=== PATIENT | female | born 1985 | race Two or more races ===

== ENCOUNTER 2019-07-11 20:29 | Emergency (ER) | payer OTHER ==
[~2019-07-11] VITALS: Ht 157.5 cm; Wt 81.6 kg
[2019-07-11 20:50] VITALS: BP 135/91
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
[2019-07-11] MEDS ORDERED: IBUPROFEN600 MG ORAL (21:29)
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
[2019-07-11 21:50] VITALS: BP 132/74
--- NOTE | 2019-07-11 21:50 | NUR ---
ER DISCHARGE NOTE: Patient is cleared to be discharged per ERMD, pt is aox4, on room air, with stable vital signs. pt was given dc and prescription instructions, pt was able to verbalize understanding, pt id band removed. pt is able to ambulate with steady gait. pt took all belongings.
== END 2019-07-11 21:50 | disposition home or self-care (01) ==
LOC: EMR 21:29
DX: S16.1XXA Strain of muscle, fascia and tendon at neck level, initial encounter (principal); S39.012A Strain of muscle, fascia and tendon of lower back, initial encounter; V43.52XA Car driver injured in collision with other type car in traffic accident, initial encounter; Y92.410 Unspecified street and highway as the place of occurrence of the external cause; R20.2 Paresthesia of skin; R42 Dizziness and giddiness; R11.0 Nausea
CPT/HCPCS: 99282